=== PATIENT | female | born 1950 | race Caucasian/White ===

== ENCOUNTER 2016-11-18 12:29 | Emergency (ER) | payer OTHER ==
[~2016-11-18] VITALS: Ht 152.4 cm; Wt 61.2 kg
[~2016-11-18 12:29] MED LIST: CLARITIN10 M3 PO; GLUCOPHAGE500 MG PO; HYDROCODON-ACE1 EAC8 PO; LIPITOR80 MG PO; NOVOLOG MI100 UNIT/4; NUCYNTA ER50 MG PO; OMEGA 3 1,0001 EACH PO; PAXIL CR37.5 MG PO; PRILOSEC20 MG PO; ZANAFLEX2 MG PO
[2016-11-18 13:15] LABS: HEMATOCRIT 46.5 % (36.0-46.0); MCH 30.6 PG (29.0-34.0); MCHC 34.4 G/DL (30.0-36.0); MCV 88.9 FL (83-99); MEAN PLAT.VOLUME 9.5 uM^3 (9.5-12.4); PLATELET COUNT 258 K/uL (156-360); RBC DIS.WIDTH-CV 12.7 % (11.8-14.6); RBC DIS.WIDTH-SD 41.5 % (39-53); RED BLOOD COUNT 5.23 M/uL (3.80-5.20); WHITE BLOOD COUNT 7.8 K/uL (4.1-10.2)
[2016-11-18 13:27] LABS: CHLORIDE 102 mEq/L (99-109); POTASSIUM 4.6 mEq/L (3.7-5.4); SODIUM 141 mEq/L (136-147)
[2016-11-18 13:29] LABS: GLUCOSE 199 mg/dL (70-99)
[2016-11-18 13:31] LABS: ANION GAP 10 MEQ/L (2-14); TOTAL BILIRUBIN 0.5 mg/dL (0.0-1.0)
[2016-11-18 13:33] LABS: ALKALINE PHOSPHATASE 48 IU/L (3-129); GFR ESTIMATE (CALCULATED) > 59 mL/min/
[2016-11-18 13:34] LABS: UREA NITROGEN (BUN) 6 mg/dL (9-23)
[2016-11-18 17:04] LABS: ADD MIUA? YES; BILIRUBIN NEGATIVE; BLOOD SMALL; COLOR YELLOW ((YELLOW)); GLUCOSE (STRIP) NEGATIVE; KETONES NEGATIVE; LEUKOCYTES SMALL; NITRITE NEGATIVE; PROTEIN (STRIP) NEGATIVE; SPECIFIC GRAVITY 1.006 (1.000-1.030); UROBILINOGEN 0.2 MG/DL (0.2-1.0)
[2016-11-18 17:55] LABS: BACTERIA RARE /HPF; EPITHELIAL CELLS RARE /HPF; MUCUS TRACE /LPF; RED BLOOD CELLS 0-5 /HPF (0-5); UCUL ADDED? NO; WHITE BLOOD CELLS 0-5 /HPF (0-5)
[2016-11-18] MEDS ORDERED: ANTIVERT12.5 MG PO (18:16)
[2016-11-18] MEDS ORDERED: ZOFRAN4 MG PO (18:16)
[2016-11-18 18:30] VITALS: BP 148/96
== END 2016-11-18 18:32 | disposition home or self-care (01) ==
LOC: EME 12:29
DX: H81.399 Other peripheral vertigo, unspecified ear (principal); E11.9 Type 2 diabetes mellitus without complications; F17.200 Nicotine dependence, unspecified, uncomplicated; Z79.84 Long term (current) use of oral hypoglycemic drugs
CPT/HCPCS: 70450; 80053; 81003; 85027; 87651 90; 99281; 99285; J2405; J2765; J7030